=== PATIENT | female | born 1995 | race American Indian/Alaskan Native ===

== ENCOUNTER 2018-11-19 21:36 | Emergency (ER) | payer SELFPAY ==
[2018-11-19 21:55] VITALS: BP 121/79; PULSE 98; TEMP 98.1; BMI 26.5
--- NOTE | 2018-11-19 22:29 | PDOC ---
History of Present Illness - General Chief Complaint: Cold Symptoms Stated Complaint: COUGH, BREATHING PROBLEM Time Seen by Provider: 11/19/18 22:18 - History of Present Illness Initial Comments: 11/19/18 22:24 23 y/o F w/o CM presents for evaluation of runny and itchy nose and cold like symptoms x1 month no fevers. Past History - Past Medical History Allergies/Adverse Reactions: Allergies Allergy/AdvReac Type Severity Reaction Status Date / Time No Known Allergies Allergy Verified 11/19/18 21:55 Home Medications: Ambulatory Orders Budesonide [Rhinocort Allergy] 1 spray NS ONCE #1 spray.pump 11/19/18 Cetirizine HCl/Pseudoephedrine [Zyrtec-D Tablet] 1 each PO DAILY #30 tab.er.12h 11/19/18 - Psycho Social/Smoking Cessation Hx Smoking History: Never smoked Hx Alcohol Use: No Drug/Substance Use Hx: No Review of Systems - Review of Systems Constitutional: No: Fever HEENTM: Yes: Nose Congestion *Physical Exam - Vital Signs Last Vital Signs Temp Pulse Resp BP Pulse Ox 98.1 F 98 H 19 121/79 98 11/19/18 21:52 11/19/18 21:52 11/19/18 21:52 11/19/18 21:52 11/19/18 21:52 - Physical Exam General Appearance: Yes: Nourished, Appropriately Dressed. 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 Pt assures me there is no chance of Discharge - Discharge Information Problems reviewed: Yes Clinical Impression/Diagnosis: Seasonal allergic reaction Condition: Stable Disposition: HOME - Admission No - Follow up/Referral - Patient Discharge Instructions Additional Instructions: Please take the medications as directed. Return to the Emergency Room should symptoms worsen. Please follow up with your primary care physician in 1-2 days for further evaluation and treatment options. - Post Discharge Activity
== END 2018-11-19 22:36 | disposition home or self-care (01) ==
LOC: JERFT 21:36
DX: J30.2 Other seasonal allergic rhinitis (principal)
CPT/HCPCS: 99281-25